=== PATIENT | male | born 1950 | race Caucasian/White ===

== ENCOUNTER 2021-01-07 02:14 | Emergency (ER) | payer BC, OTHER ==
[~2021-01-07] VITALS: Ht 165.1 cm; Wt 68.0 kg
[~2021-01-07 02:14] MED LIST: DOCU-299 PO; LEVO500T6 PO; METR500T1 PO; [UNRECOGNIZED DRUG - CODE] PO
[2021-01-07 02:17] VITALS: BP 122/86
--- NOTE | 2021-01-07 02:35 | NUR ---
EKG PERFORMED AT BEDSIDE. EKG READS SINUS RHYTHM @ 59
[2021-01-07 02:55] LABS: BASOPHILS % (AUTO) 0.4 % (0.0-2.0); EOSINOPHILS # (AUTO) 0.2 K/uL (0-0.4); EOSINOPHILS % (AUTO) 2.4 % (0.0-4.0); HEMATOCRIT 44.9 % (36-52); HEMOGLOBIN 15.2 g/dL (12.0-18.0); LYMPHOCYTES # (AUTO) 1.7 K/uL (2.0-11.5); LYMPHOCYTES % (AUTO) 24.2 % (20.5-51.1); MEAN CORPUSCULAR HEMOGLOBIN 31 pg (27-31); MEAN CORPUSCULAR HGB CONC 34 g/dL (33-37); MEAN CORPUSCULAR VOLUME 90.4 fL (80-94); MONOCYTES # (AUTO) 0.4 K/uL (0.8-1.0); MONOCYTES % (AUTO) 5.8 % (1.7-9.3); NEUTROPHILS # (AUTO) 4.8 K/uL (1.8-7.7); NEUTROPHILS % (AUTO) 67.2 % (42.2-75.2); PLATELET COUNT (AUTO) 201 K/uL (140-450); RED BLOOD CELL COUNT(AUTO) 4.96 MIL/uL (4.20-6.10); RED CELL DISTRIBUTION WIDTH 13.5 % (11.6-13.7); WHITE BLOOD COUNT (AUTO) 7.1 K/uL (4.8-10.8)
[2021-01-07 03:12] LABS: ALBUMIN 3.7 g/dL (3.4-5.0); ANION GAP 15.5 (8-16); ASPARTATE AMINOTRANSFERASE 35 U/L (15-37); CARBON DIOXIDE 24.1 mmol/L (21-32); CHLORIDE 104 mmol/L (98-107); CREATININE 1.1 mg/dL (0.6-1.3); GLUCOSE 158 mg/dL (74-106); POTASSIUM 3.6 mmol/L (3.5-5.1); SODIUM SERUM 140 mmol/L (136-145); TOTAL BILIRUBIN 0.8 mg/dL (0.0-1.0); UREA NITROGEN, BLOOD 14 mg/dL (7-18)
--- NOTE | 2021-01-07 03:16 | NUR ---
X-Ray at bedside.
--- NOTE | 2021-01-07 03:20 | NUR ---
70 Y/O SERBIAN SPEAKING MALE ARRIVED TO THE ED VIA AMBULANCE WITH C/O ALTERED LEVEL OF CONSCIOUSNESS. PATIENT AOX3; UNABLE TO RECALL THE CURRENT YEAR. DENIES N/V/D; LUNGS CLEAR BL; HR EVEN AND REGULAR; PT DENIES ANY FEVER, CP, SOB, OR COUGH AT THIS TIME; PATIENT STATES PAIN OF 0/10 AT THIS TIME; VSS; PATIENT POSITIONED FOR COMFORT; HOB ELEVATED; BEDRAILS UP X2; BED DOWN. ER MD MADE AWARE OF PT STATUS. PMH: HYPERTENSION, SLEEP APNEA, BPH ALLERGIES: PENICILLINS
--- NOTE | 2021-01-07 03:35 | NUR ---
Inder jensen in [facility] - 01/07/21 at 0335 by BINH PT TAKEN TO CT
--- NOTE | 2021-01-07 03:35 | NUR ---
PT OFF TO CT
[2021-01-07 03:51] LABS: APPEARANCE,URINE CLEAR (CLEAR); BILIRUBIN,URINE NEGATIVE (NEGATIVE); BLOOD, URINE TRACE-I (NEGATIVE); COLOR,URINE YELLOW (YELLOW); LEUKOCYTE ESTERASE ,URINE NEGATIVE (NEGATIVE); NITRITE, URINE NEGATIVE (NEGATIVE); UGLUCOSE NEGATIVE (NEGATIVE)
--- NOTE | 2021-01-07 04:01 | NUR ---
S/W RODRIGO, TO PROVIDE UPDATE WITH PATIENT'S PERMISSION. CAN BE REACHED AT [phone]
[2021-01-07 04:13] LABS: RBC,URINE 0-5 /HPF (0-5); WBC,URINE 0-5 /HPF (0-5)
[2021-01-07 04:15] LABS: BARBITURATE, URINE NEGATIVE ng/ml (NEG <=200); BENZODIAZEPINE, URINE NEGATIVE ng/mL (NEG <=200); CANNABINOID, URINE NEGATIVE ng/mL (NEG <=50); COCAINE, URINE NEGATIVE ng/mL (NEG <=300); OPIATE, URINE NEGATIVE ng/mL (NEG <=2000); PHENCYCLIDINE SCREEN,URINE NEGATIVE ng/mL (NEG <=25)
--- NOTE | 2021-01-07 05:11 | NUR ---
PT SPEAKING WITH
[2021-01-07 05:25] LABS: CKMB RELATIVE INDEX 3.9 (0.0-2.5)
[2021-01-07 05:27] LABS: ACETAMINOPHEN < 0.5 ug/ml (10-30); SALICYLATE < 2.8 mg/dL (2.8-20.0)
--- NOTE | 2021-01-07 05:53 | NUR ---
SPEAKING WITH PT'S .
[2021-01-07 06:20] VITALS: BP 143/68
--- NOTE | 2021-01-07 06:20 | NUR ---
Patient discharged with v/s stable. Written and verbal after care instructions given and explained. Patient verbalized understanding. Ambulatory with steady gait. All questions addressed prior to discharge. ID BAND REMOVED. Advised to follow up with PMD AND NEUROLOGIST.
== END 2021-01-07 06:20 | disposition home or self-care (01) ==
LOC: MED 02:14
DX: R41.82 Altered mental status, unspecified (principal); I10 Essential (primary) hypertension; G47.30 Sleep apnea, unspecified
CPT/HCPCS: 36415; 70450; 71045; 80053; 80305; 81001; 82140; 82550; 82553; 84484; 85025; 93005; 99291; G0480; G0482